=== PATIENT | female | born 1990 | race Two or more races ===

== ENCOUNTER 2019-05-05 15:52 | Emergency (ER) | payer OTHER ==
[~2019-05-05] VITALS: Ht 162.6 cm; Wt 55.0 kg
[2019-05-05 18:36] LABS: BASOPHILS % 0.4 % (0.0-2.0); EOSINOPHILS % 2.8 % (0.0-5.0); HEMATOCRIT. 35.5 % (36.0-48.0); HEMOGLOBIN. 12.1 g/dL (12.0-16.0); LYMPHOCYTES % 22.2 % (20.0-50.0); MEAN CORPUSCULAR HEMOGLOBIN 30.5 pg (28.0-32.0); MEAN CORPUSCULAR VOLUME 89.6 fL (81.0-99.0); MEAN PLATELET VOLUME 8.8 fl (7.4-10.4); MONOCYTES % 8.4 % (2.0-8.0); NEUTROPHILS % 66.2 % (40.0-76.0); PLATELET 221 x1000/uL (130-400); RED BLOOD CELL COUNT 3.96 mill/uL (4.2-5.4); RED CELL DISTRIBUTION WIDTH 14.1 % (11.6-14.6)
[2019-05-05 18:36] LABS: CLARITY URINE CLOUDY (CLEAR); COLOR URINE YELLOW (YELLOW); KETONES URINE NEGATIVE (NEGATIVE); LEUKOCYTE ESTERASE URINE 2+ (NEGATIVE); NITRITE URINE NEGATIVE (NEGATIVE); OCCULT BLOOD URINE TRACE (NEGATIVE); PROTEIN URINE TRACE (NEGATIVE); SPECIFIC GRAVITY URINE 1.016 (1.005-1.030); UROBILINOGEN URINE 0.2 E.U./dL (0.2-1.0)
[2019-05-05 18:37] LABS: CHLORIDE 106 mEq/L (98-107)
[2019-05-05 19:28] VITALS: BP 112/74
== END 2019-05-05 20:24 | disposition left against medical advice (07) ==
LOC: ER 15:52
DX: O26.891 Other specified pregnancy related conditions, first trimester (principal); Z3A.12 12 weeks gestation of pregnancy; R10.12 Left upper quadrant pain; R10.2 Pelvic and perineal pain
CPT/HCPCS: 36415; 81003; 87077; 87186; 99284

== ENCOUNTER 2019-09-12 15:33 | Inpatient (IN) | payer OTHER ==
[~2019-09-12] VITALS: Ht 162.6 cm; Wt 80.0 kg
[2019-09-12] MEDS ORDERED: ACETAMINOPHEN 325MG TABLET PO STA (20:16)
[2019-09-12 20:35] LABS: HEMATOCRIT. 31.2 % (36.0-48.0); HEMOGLOBIN. 10.6 g/dL (12.0-16.0); MEAN CORPUSCULAR HEMOGLOBIN 29.3 pg (28.0-32.0); MEAN CORPUSCULAR VOLUME 86.1 fL (81.0-99.0); MEAN PLATELET VOLUME 8.9 fl (7.4-10.4); PLATELET 229 x1000/uL (130-400); RED BLOOD CELL COUNT 3.62 mill/uL (4.2-5.4); RED CELL DISTRIBUTION WIDTH 13.3 % (11.6-14.6)
[2019-09-12 20:41] LABS: INR 0.9; PROTHROMBIN TIME 9.9 sec (9.6-11.0)
[2019-09-12 20:55] LABS: CHLORIDE 107 mEq/L (98-107)
[2019-09-12 20:56] LABS: PLATELET ESTIMATE NORMAL
[2019-09-12 21:15] LABS: CLARITY URINE TURBID (CLEAR); COLOR URINE YELLOW (YELLOW); KETONES URINE TRACE (NEGATIVE); LEUKOCYTE ESTERASE URINE 2+ (NEGATIVE); NITRITE URINE NEGATIVE (NEGATIVE); OCCULT BLOOD URINE 1+ (NEGATIVE); PH URINE 6.5 (4.5-8.0); PROTEIN URINE TRACE (NEGATIVE); SPECIFIC GRAVITY URINE 1.022 (1.005-1.030); UROBILINOGEN URINE 0.2 E.U./dL (0.2-1.0)
[2019-09-12] MEDS ORDERED: FLUCONAZOLE 100MG TABLET PO ONE (21:30)
[2019-09-12] MEDS ORDERED: CEPHALEXIN 250MG CAPSULE PO ONE (21:30)
[2019-09-12] MEDS ORDERED: FLUCONAZOLE 150MG TABLET PO NR (21:36)
[2019-09-12 21:50] VITALS: BP 132/70
[2019-09-13] MEDS ORDERED: PNV91TAB6 PO (01:36)
[2019-09-13] MEDS ORDERED: FERR-71 PO (01:36)
[2019-09-13] MEDS ORDERED: FOLI0.4T2 PO (01:36)
== END 2019-09-13 01:50 | disposition home or self-care (01) | DRG 566 ==
LOC: ER 15:33 → 8 EST LDRP 22:17
PROVIDERS: ADMIT Obstetrics & Gynecology; ATTEND Obstetrics & Gynecology
DX: O75.89 Other specified complications of labor and delivery (principal); R10.2 Pelvic and perineal pain; Z3A.30 30 weeks gestation of pregnancy; V49.9XXA Car occupant (driver) (passenger) injured in unspecified traffic accident, initial encounter; Y93.89 Activity, other specified; Y92.89 Other specified places as the place of occurrence of the external cause; Y99.8 Other external cause status
CPT/HCPCS: 36415; 76805; 76818; 80053; 81003; 85025; 99281; 99285; G0378